=== PATIENT | female | born 1960 | race American Indian/Alaskan Native ===

== ENCOUNTER 2017-06-28 08:34 | Emergency (ER) | payer SELFPAY ==
[2017-06-28] MEDS ORDERED: BENADRYL IV ONE (11:15)
[2017-06-28] MEDS ORDERED: NACL 0.9% 500 ML 500 ML IV ONE (11:15)
[2017-06-28] MEDS ORDERED: PEPCID IV ONE (11:15)
[2017-06-28 11:33] LABS: Basophils % (Auto) 0.8 % (0.0-1.8); Eosinophils % (Auto) 1.9 % (0.0-4.3); Hematocrit 42.2 % (30.3-42.9); Hemoglobin 14.3 gm/dl (10.1-14.3); Mean Corpuscular HGB Conc 34 % (30-34); Mean Corpuscular Hemoglobin 31 pg (28-32); Mean Corpuscular Volume 91 fl (79-97); Platelet Count 208 K/mm3 (140-440); Red Blood Count 4.64 M/mm3 (3.65-5.03); Red Cell Distribution Width 14.1 % (13.2-15.2); White Blood Count 9.5 K/mm3 (4.5-11.0)
[2017-06-28 11:44] LABS: Anion Gap 17 mmol/L; BUN/Creatinine Ratio 15; Blood Urea Nitrogen 17 mg/dL (7-17); Calcium 9.5 mg/dL (8.4-10.2); Carbon Dioxide 25 mmol/L (22-30); Glucose 123 mg/dL (65-100); Sodium 140 mmol/L (137-145)
--- NOTE | 2017-06-28 12:01 | Emergency Department Report ---
ED General Adult HPI - General Chief complaint: Allergic Reaction Stated complaint: LIPS SWELLING/HIVES Time Seen by Provider: 06/28/17 10:46 Source: patient Mode of arrival: Ambulatory Limitations: No Limitations - History of Present Illness Initial comments: PT states she has a history of hives. She states she has been getting them intermittently for years. PT states she has been seen at other hospitals for this. PT states she takes a family dollar allergy medication every other day. PT states she has been checking her bp at home and it has been around 194/120 for "awhile". PT states she has not been dx with htn. PT states she does not take medication for htn. PT states last night she felt like her lips were swelling. PT states she was in the hospital visiting her [id number] and she also noticed the swelling. PT also reports a sore throat. MD Complaint: rash, lips swelling -: Gradual, days(s) Location: face, abdomen Quality: other (itchy ) Consistency: constant Improves with: none Worsens with: eating Associated Symptoms: rash. denies: cough, fever/chills, nausea/vomiting, shortness of breath Treatments Prior to Arrival: none, other (benadryl last night) - Related Data Previous Rx's Medication Instructions Recorded Last Taken Type Famotidine [Pepcid] 20 mg PO BID #14 tablet 06/28/17 Unknown Rx Hydrochlorothiazide [HCTZ] 25 mg PO QDAY #14 tablet 06/28/17 Unknown Rx hydrOXYzine PAMOATE [Vistaril] 25 mg PO Q6HR PRN #12 capsule 06/28/17 Unknown Rx Allergies Allergy/AdvReac Type Severity Reaction Status Date / Time No Known Allergies Allergy Unverified 06/28/17 09:00 ED Review of Systems ROS: Stated complaint: LIPS SWELLING/HIVES Other details as noted in HPI Comment: All other systems reviewed and negative Constitutional: denies: chills, fever ENT: throat pain Respiratory: denies: cough, shortness of breath Cardiovascular: denies: chest pain Gastrointestinal: denies: abdominal pain Musculoskeletal: denies: back pain Skin: rash ED Past Medical Hx - Past Medical History Previous Medical History?: No Additional medical history: uritcaria - Surgical History Past Surgical History?: No - Social History Smoking Status: Current Every Day Smoker Substance Use Type: Alcohol - Medications Home Medications: Home Medications Medication Instructions Recorded Confirmed Last Taken Type Famotidine [Pepcid] 20 mg PO BID #14 tablet 06/28/17 Unknown Rx Hydrochlorothiazide [HCTZ] 25 mg PO QDAY #14 tablet 06/28/17 Unknown Rx hydrOXYzine PAMOATE [Vistaril] 25 mg PO Q6HR PRN #12 capsule 06/28/17 Unknown Rx ED Physical Exam - General Limitations: No Limitations General appearance: alert, in no apparent distress - Head Head exam: Present: atraumatic, normocephalic, normal inspection - Eye Eye exam: Present: normal appearance, PERRL, EOMI. Absent: conjunctival injection - ENT ENT exam: Present: mucous membranes moist, TM's normal bilaterally, normal external ear exam - Expanded ENT Exam Expanded Mouth exam: Present: other (no angioedema noted. ). Absent: drooling, trismus, muffled voice Throat exam: Positive: other (uvula with erythema - no air way obstruction ). Negative: tonsillar erythema, tonsillomegaly, tonsillar exudate - Neck Neck exam: Present: normal inspection, full ROM, lymphadenopathy - Respiratory Respiratory exam: Present: normal lung sounds bilaterally. Absent: respiratory distress, wheezes, rales, chest wall tenderness - Cardiovascular Cardiovascular Exam: Present: regular rate, normal rhythm, normal heart sounds - GI/Abdominal GI/Abdominal exam: Present: soft. Absent: tenderness - Extremities Exam Extremities exam: Present: normal inspection, full ROM - Back Exam Back exam: Present: normal inspection, full ROM - Neurological Exam Neurological exam: Present: alert, oriented X3, normal gait - Psychiatric Psychiatric exam: Present: normal affect, normal mood - Skin Skin exam: Present: warm, dry, intact, rash, urticaria (to abd ) ED Course Vital Signs 06/28/17 06/28/17 06/28/17 09:00 14:51 16:20 Temperature 98.5 F Pulse Rate 63 64 70 Respiratory 18 18 Rate Blood Pressure 192/117 Blood Pressure 180/121 222/141 [Right] O2 Sat by Pulse 98 99 Oximetry 06/28/17 06/28/17 06/28/17 16:21 16:40 17:10 Temperature Pulse Rate 70 82 80 Respiratory 18 18 Rate Blood Pressure 222/141 Blood Pressure 216/127 203/118 [Right] O2 Sat by Pulse Oximetry BP decreasing. - Reevaluation(s) Reevaluation #1: 06/28/17 13:19 PT states she is feeling better. Urticaria resolved. PT aware she will need to follow up with PCP for bp recheck. PT aware of complications from untreated HTN Reevaluation #2: 06/28/17 17:23 No angioedema while in ED. Pt's bp increased from her baseline and was treated with one dose of Hydralazine. Her bp decreased to her baseline. PT aware she will need to follow up with PCP for bp management. PT aware that it is safest for bp to be decreased slowly. PT verbalizes understanding. - Pulse Oximetry Interpretation Digit-Finger Initial Pulse Oximetry Readin Actions Taken: none ED Medical Decision Making - Lab Data Result diagrams: 06/28/17 11:20 06/28/17 11:20 Laboratory Results - last 24 hr 06/28/17 06/28/17 11:20 11:20 WBC 9.5 RBC 4.64 Hgb 14.3 Hct 42.2 MCV 91 MCH 31 MCHC 34 RDW 14.1 Plt Count 208 Lymph % (Auto) 30.4 [place] % (Auto) 6.1 Eos % (Auto) 1.9 Baso % (Auto) 0.8 Lymph # 2.9 [place] # 0.6 Eos # 0.2 Baso # 0.1 Seg Neutrophils % 60.8 Seg Neutrophils # 5.8 Sodium 140 Potassium 4.0 Chloride 102.0 Carbon Dioxide 25 Anion Gap 17 BUN 17 Creatinine 1.1 Estimated GFR > 60 BUN/Creatinine Ratio 15 Glucose 123 H Calcium 9.5 - Differential Diagnosis allergic reaction, urticaria, htn, renal insufficency Critical Care Time: No Critical care attestation.: If time is entered above; I have spent that time in minutes in the direct care of this critically ill patient, excluding procedure time. ED Disposition Clinical Impression: Elevated blood pressure reading, Urticaria Disposition: - TO HOME OR SELFCARE Is pt being admited?: No Does the pt Need Aspirin: No Condition: Stable Instructions: Urticaria (ED), Hypertension (ED) Additional Instructions: Follow up with PCP in 3-5 days Have your bp rechecked on follow up No driving or alcohol after taking Vistaril Return to the ED if worsening or concerns Prescriptions: Famotidine [Pepcid] 20 mg PO BID #14 tablet Hydrochlorothiazide [HCTZ] 25 mg PO QDAY #14 tablet hydrOXYzine PAMOATE [Vistaril] 25 mg PO Q6HR PRN #12 capsule PRN Reason: Itching Referrals: PRIMARY CARE, [Primary Care Provider] - 3-5 Days QUINCY DANIEL MD [Staff Physician] - 3-5 Days [facility] [[facility] - 3-5 Days Time of Disposition: 13:21
[2017-06-28] MEDS ORDERED: HCTZ PO ONE (14:43)
[2017-06-28] MEDS ORDERED: APRESOLINE IV ONE (16:17)
[2017-06-28] MEDS ORDERED: APRESOLINE ONE (16:20)
[2017-06-28 18:01] VITALS: BP 203/118
== END 2017-06-28 18:01 | disposition home or self-care (01) ==
LOC: ED 08:34
DX: L50.9 Urticaria, unspecified (principal); R03.0 Elevated blood-pressure reading, without diagnosis of hypertension; F17.200 Nicotine dependence, unspecified, uncomplicated
CPT/HCPCS: 36415; 80048; 85025; 96361; 96374; 96375; 99283; J0360; J1200; J2930; J7040

== ENCOUNTER 2019-03-13 08:15 | Emergency (ER) | payer SELFPAY ==
[2019-03-13 08:24] VITALS: BP 139/87
[2019-03-13] MEDS ORDERED: IBUPROFEN PO ONE (09:02)
--- NOTE | 2019-03-13 09:05 | Emergency Department Report ---
- General Chief complaint: Back Pain/Injury Stated complaint: BACK PAIN Time Seen by Provider: 03/13/19 09:01 Source: patient Mode of arrival: Ambulatory Limitations: No Limitations - History of Present Illness Initial comments: 58-year-old -[place] female presents to the emergency room training of mid back pain states that something bit her a few nights ago. Patient reports that it is painful. Patient reports she has a past medical history of hypertension. Denies any fever chills no nausea no vomiting or shortness of breathing or chest pain. MD complaint: insect bite/sting Onset/Timin -: days(s) Location: back Severity: severe Severity scale (0 -10): 10 Quality: burning, stabbing Consistency: constant Improves with: none Worsens with: none Associated symptoms: denies other symptoms Treatments Prior to Arrival: none - Related Data Previous Rx's Medication Instructions Recorded Last Taken Type Famotidine [Pepcid] 20 mg PO BID #14 tablet 06/28/17 Unknown Rx hydrOXYzine PAMOATE [Vistaril] 25 mg PO Q6HR PRN #12 capsule 06/28/17 Unknown Rx hydroCHLOROthiazide [HCTZ] 25 mg PO QDAY #14 tablet 06/28/17 Unknown Rx Ibuprofen [Motrin 600 MG tab] 600 mg PO Q8H PRN #21 tablet 03/13/19 Unknown Rx cephALEXin [Keflex] 500 mg PO Q12HR #14 cap 03/13/19 Unknown Rx Allergies Allergy/AdvReac Type Severity Reaction Status Date / Time No Known Allergies Allergy Unverified 06/28/17 09:00 Abscess Boil HPI - HPI Chief Complaint: Back Pain/Injury Stated Complaint: BACK PAIN Time Seen by Provider: 03/13/19 09:01 Home Medications: Previous Rx's Medication Instructions Recorded Last Taken Type Famotidine [Pepcid] 20 mg PO BID #14 tablet 06/28/17 Unknown Rx hydrOXYzine PAMOATE [Vistaril] 25 mg PO Q6HR PRN #12 capsule 06/28/17 Unknown Rx hydroCHLOROthiazide [HCTZ] 25 mg PO QDAY #14 tablet 06/28/17 Unknown Rx Ibuprofen [Motrin 600 MG tab] 600 mg PO Q8H PRN #21 tablet 03/13/19 Unknown Rx cephALEXin [Keflex] 500 mg PO Q12HR #14 cap 03/13/19 Unknown Rx Allergies/Adverse Reactions: Allergies Allergy/AdvReac Type Severity Reaction Status Date / Time No Known Allergies Allergy Unverified 06/28/17 09:00 ED Review of Systems ROS: Stated complaint: BACK PAIN Other details as noted in HPI ED Past Medical Hx - Past Medical History Previous Medical History?: Yes Hx Hypertension: Yes Additional medical history: uritcaria - Surgical History Past Surgical History?: Yes Additional Surgical History: - Social History Smoking Status: Never Smoker Substance Use Type: None - Medications Home Medications: Home Medications Medication Instructions Recorded Confirmed Last Taken Type Famotidine [Pepcid] 20 mg PO BID #14 tablet 06/28/17 Unknown Rx hydrOXYzine PAMOATE [Vistaril] 25 mg PO Q6HR PRN #12 capsule 06/28/17 Unknown Rx hydroCHLOROthiazide [HCTZ] 25 mg PO QDAY #14 tablet 06/28/17 Unknown Rx Ibuprofen [Motrin 600 MG tab] 600 mg PO Q8H PRN #21 tablet 03/13/19 Unknown Rx cephALEXin [Keflex] 500 mg PO Q12HR #14 cap 03/13/19 Unknown Rx ED Physical Exam - General Limitations: No Limitations General appearance: alert, in no apparent distress - Head Head exam: Present: atraumatic, normocephalic - Eye Eye exam: Present: normal appearance - ENT ENT exam: Present: mucous membranes moist - Neck Neck exam: Present: normal inspection, full ROM - Respiratory Respiratory exam: Present: normal lung sounds bilaterally. Absent: respiratory distress - Cardiovascular Cardiovascular Exam: Present: regular rate, normal rhythm. Absent: systolic murmur, diastolic murmur, rubs, gallop - Extremities Exam Extremities exam: Present: normal inspection - Neurological Exam Neurological exam: Present: alert, oriented X3 - Psychiatric Psychiatric exam: Present: normal affect, normal mood - Expanded Skin Exam Expanded Type of lesion: Present: bite/sting Distribution of rash: back Description of rash: Present: tenderness, erythematous, indurated. Absent: fluctuant ED Course Vital Signs 03/13/19 08:21 Temperature 99 F Pulse Rate 94 H Respiratory 20 Rate Blood Pressure 139/87 [Left] O2 Sat by Pulse 98 Oximetry ED Medical Decision Making - Medical Decision Making 58-year-old -[place] female presents to the emergency room training of mid back pain states that something bit her a few nights ago. Patient reports that it is painful. Patient reports she has a past medical history of hypertension. Denies any fever chills no nausea no vomiting or shortness of breathing or chest pain. Patient will be given ibuprofen for pain management. I discussed the patient was treated for cellulitis place her on Keflex and pain medication patient is to follow-up with her primary care provider if her symptoms persist or gets worse. Patient verbalized understanding. Critical care attestation.: If time is entered above; I have spent that time in minutes in the direct care of this critically ill patient, excluding procedure time. ED Disposition Clinical Impression: Insect bite Cellulitis Qualifiers: Site of cellulitis: unspecified site Qualified Code(s): L03.90 - Cellulitis, unspecified Disposition: TO HOME OR SELFCARE Is pt being admited?: No Does the pt Need Aspirin: No Condition: Stable Instructions: Cellulitis (ED), Insect Bite or Sting (ED) Additional Instructions: Complete antibiotics as prescribed. Take pain medication as needed. Increase her water intake while taking antibiotics and ibuprofen. Follow up with her primary care provider if his symptoms persist or gets worse. Prescriptions: cephALEXin [Keflex] 500 mg PO Q12HR #14 cap Ibuprofen [Motrin 600 MG tab] 600 mg PO Q8H PRN #21 tablet PRN Reason: Pain , Severe (7-10) Referrals: Your,Provider [Other] - 3-5 Days Forms: Work/School Release Form(ED)
== END 2019-03-13 09:56 | disposition home or self-care (01) ==
LOC: ED 08:15
DX: S20.469A Insect bite (nonvenomous) of unspecified back wall of thorax, initial encounter (principal); L03.312 Cellulitis of back [any part except buttock and flank]; I10 Essential (primary) hypertension; W57.XXXA Bitten or stung by nonvenomous insect and other nonvenomous arthropods, initial encounter; Y93.89 Activity, other specified; Y92.89 Other specified places as the place of occurrence of the external cause; Y99.8 Other external cause status

== ENCOUNTER 2020-12-11 09:54 | Emergency (ER) | payer OTHER ==
[2020-12-11 10:16] VITALS: BP 177/113
--- NOTE | 2020-12-11 10:19 | Emergency Department Report ---
ED General Adult HPI - General Chief complaint: Back Pain/Injury Stated complaint: FALL, BACK AND LEFT SIDE OF BODY HURTS Time Seen by Provider: 12/11/20 10:15 Source: patient Mode of arrival: Ambulatory Limitations: No Limitations - History of Present Illness Initial comments: 60-year-old -[place]ong[place] female patient with history of hypertension pre sents with complaints of left shoulder and back pain after a fall injury 2 days ago. Patient states she tripped and fell over a box at work. She denies any head injury or loss of consciousness, numbness/tingling/weakness in her limbs, loss of bladder/bowel control, or difficulty with ambulation. Patient rates her pain as a 7/10 in severity and states it does improve with Tylenol temporarily. -: Sudden - Related Data Previous Rx's Medication Instructions Recorded Last Taken Type Famotidine [Pepcid] 20 mg PO BID #14 tablet 06/28/17 Unknown Rx hydrOXYzine PAMOATE [Vistaril] 25 mg PO Q6HR PRN #12 capsule 06/28/17 Unknown Rx hydroCHLOROthiazide [HCTZ] 25 mg PO QDAY #14 tablet 06/28/17 Unknown Rx Ibuprofen [Motrin 600 MG tab] 600 mg PO Q8H PRN #21 tablet 03/13/19 Unknown Rx cephALEXin [Keflex] 500 mg PO Q12HR #14 cap 03/13/19 Unknown Rx Naproxen 500 mg PO BID PRN #20 tablet 12/11/20 Unknown Rx methocarbamoL [Methocarbamol] 500 - 1,000 mg PO TID PRN #20 12/11/20 Unknown Rx tablet Allergies Allergy/AdvReac Type Severity Reaction Status Date / Time No Known Allergies Allergy Verified 12/11/20 10:16 ED Review of Systems ROS: Stated complaint: FALL, BACK AND LEFT SIDE OF BODY HURTS Other details as noted in HPI Constitutional: denies: malaise Respiratory: denies: cough, shortness of breath Cardiovascular: denies: chest pain Gastrointestinal: denies: abdominal pain, nausea, vomiting Musculoskeletal: back pain Neurological: denies: numbness, paresthesias ED Past Medical Hx - Past Medical History Hx Hypertension: Yes Additional medical history: uritcaria - Surgical History Additional Surgical History: - Social History Smoking Status: Current Every Day Smoker Substance Use Type: None - Medications Home Medications: Home Medications Medication Instructions Recorded Confirmed Last Taken Type Famotidine [Pepcid] 20 mg PO BID #14 tablet 06/28/17 Unknown Rx hydrOXYzine PAMOATE [Vistaril] 25 mg PO Q6HR PRN #12 capsule 06/28/17 Unknown Rx hydroCHLOROthiazide [HCTZ] 25 mg PO QDAY #14 tablet 06/28/17 Unknown Rx Ibuprofen [Motrin 600 MG tab] 600 mg PO Q8H PRN #21 tablet 03/13/19 Unknown Rx cephALEXin [Keflex] 500 mg PO Q12HR #14 cap 03/13/19 Unknown Rx Naproxen 500 mg PO BID PRN #20 tablet 12/11/20 Unknown Rx methocarbamoL [Methocarbamol] 500 - 1,000 mg PO TID PRN #20 12/11/20 Unknown Rx tablet ED Physical Exam - General Limitations: No Limitations General appearance: alert, in no apparent distress - Head Head exam: Present: atraumatic, normocephalic - Eye Eye exam: Present: normal appearance - Neck Neck exam: Present: normal inspection, full ROM - Respiratory Respiratory exam: Present: normal lung sounds bilaterally, chest wall tenderness (Lateral lower left rib tenderness to palpation noted without bruising or obvious deformity). Absent: respiratory distress - Cardiovascular Cardiovascular Exam: Present: regular rate, normal rhythm - Extremities Exam Extremities exam: Present: full ROM. Absent: other (Tenderness to palpation noted to left trapezius muscle without bony tenderness to the left shoulder noted; full range of motion of the left shoulder noted; normal sensation and perfusion of the left arm as noted) - Back Exam Back exam: Present: normal inspection - Neurological Exam Neurological exam: Present: alert, oriented X3 - Psychiatric Psychiatric exam: Present: normal affect, normal mood - Skin Skin exam: Present: warm, dry, intact, normal color. Absent: rash ED Course Vital Signs 12/11/20 10:14 Temperature 98.4 F Pulse Rate 78 Respiratory 20 Rate Blood Pressure 177/113 O2 Sat by Pulse 100 Oximetry ED Medical Decision Making - Radiology Data Radiology results: report reviewed THORACIC SPINE 3 VIEWS INDICATION: Back pain after fall. COMPARISON: No relevant prior imaging study available. FINDINGS: VERTEBRAE: No acute fracture. Normal alignment. DISC SPACES: No significant abnormality. FACET JOINTS: No significant abnormality. SOFT TISSUES: No significant abnormality. ADDITIONAL LEFT RIBS 3 VIEWS INDICATION: posteriolateral left rib pain after fall. COMPARISON: None available. FINDINGS: RIBS: No acute, displaced fracture or other acute abnormality. CHEST: No acute findings. No pneumothorax. ADDITIONAL FINDINGS: No additional significant findings. IMPRESSION: - Medical Decision Making 60-year-old -[place]ong[place] female patient with history of hypertension presents with complaints of left shoulder and back pain after a fall injury 2 days ago. Patient states she tripped and fell over a box at work. She denies any head injury or loss of consciousness, numbness/tingling/weakness in her limbs, loss of bladder/bowel control, or difficulty with ambulation. Patient rates her pain as a 7/10 in severity and states it does improve with Tylenol temporarily. No abnormalities noted on x-ray. Will treat for muscle strain with NSAIDs, muscle relaxers, and icing. Blood pressure elevated initially. Patient has history of hypertension states compliance with her antihypertensive medication. Blood pressure on repeat 168/101. Recommend follow-up with PCP in 3 to 5 days. Strict return precautions discussed in detail with patient who verbalized understanding. Critical care attestation.: If time is entered above; I have spent that time in minutes in the direct care of this critically ill patient, excluding procedure time. ED Disposition Clinical Impression: Back injury Disposition: DC-01 TO HOME OR SELFCARE Is pt being admited?: No Condition: Stable Instructions: Thoracic Strain Prescriptions: methocarbamoL [Methocarbamol] 500 - 1,000 mg PO TID PRN #20 tablet PRN Reason: Muscle spasm/tightness Naproxen 500 mg PO BID PRN #20 tablet PRN Reason: pain Referrals: PRIMARY CARE [Primary Care Provider] - 3-5 Days [facility] [Provider Group] - 3-5 Days Forms: Work/School Release Form(ED)
--- NOTE | 2020-12-11 10:54 | XRay Report ---
THORACIC SPINE 3 VIEWS INDICATION: Back pain after fall. COMPARISON: No relevant prior imaging study available. FINDINGS: VERTEBRAE: No acute fracture. Normal alignment. DISC SPACES: No significant abnormality. FACET JOINTS: No significant abnormality. SOFT TISSUES: No significant abnormality. ADDITIONAL FINDINGS: No additional significant findings. IMPRESSION: 1. No acute findings. Signer Name: Raymond Sanford MD Signed: 12/11/2020 10:49 AM Workstation Name: [id number]
--- NOTE | 2020-12-11 10:55 | XRay Report ---
LEFT RIBS 3 VIEWS INDICATION: posteriolateral left rib pain after fall. COMPARISON: None available. FINDINGS: RIBS: No acute, displaced fracture or other acute abnormality. CHEST: No acute findings. No pneumothorax. ADDITIONAL FINDINGS: No additional significant findings. IMPRESSION: 1. No acute abnormality. Signer Name: Raymond Sanford MD Signed: 12/11/2020 10:50 AM Workstation Name: [id number]
== END 2020-12-11 12:23 | disposition home or self-care (01) ==
LOC: ED 09:54
DX: S29.9XXA Unspecified injury of thorax, initial encounter (principal); M25.512 Pain in left shoulder; R09.81 Nasal congestion; I10 Essential (primary) hypertension; F17.200 Nicotine dependence, unspecified, uncomplicated; Z98.890 Other specified postprocedural states; Z79.899 Other long term (current) drug therapy; W01.0XXA Fall on same level from slipping, tripping and stumbling without subsequent striking against object, initial encounter; Y93.89 Activity, other specified; Y92.89 Other specified places as the place of occurrence of the external cause; Y99.8 Other external cause status
CPT/HCPCS: 72070; 99283

== ENCOUNTER 2022-01-13 12:39 | Emergency (ER) | payer SELFPAY ==
[2022-01-13] MEDS ORDERED: SODIUM CHLORIDE 0.9% 1000 ML IV SOLN IV ONE (14:26)
[2022-01-13] MEDS ORDERED: ACETAMINOPHEN 325 MG TAB PO ONE (14:27)
--- NOTE | 2022-01-13 14:52 | XRay Report ---
CHEST 1 VIEW 01/13/2022 1:45 PM INDICATION / CLINICAL INFORMATION: fever, htn. COMPARISON: 12/11/2020 FINDINGS: SUPPORT DEVICES: None. HEART / MEDIASTINUM: No significant abnormality. LUNGS / PLEURA: No significant pulmonary or pleural abnormality. No pneumothorax. ADDITIONAL FINDINGS: No significant additional findings. IMPRESSION: 1. No acute findings. No change since 12/11/2020. Signer Name: Kenneth Laureano Jr, MD Signed: 01/13/2022 2:47 PM Workstation Name: [id number]
[2022-01-13 14:53] LABS: Basophils # (Auto) 0.1 K/mm3 (0.0-0.1); Basophils % (Auto) 0.9 % (0.0-1.8); Eosinophils % (Auto) 0.2 % (0.0-4.3); Hematocrit 40.7 % (30.3-42.9); Hemoglobin 13.9 gm/dl (10.1-14.3); Lymphocytes # (Auto) 1.1 K/mm3 (1.2-5.4); Lymphocytes % (Auto) 9.2 % (13.4-35.0); Mean Corpuscular HGB Conc 34 % (30-34); Mean Corpuscular Volume 94 fl (79-97); Monocytes % (Auto) 8.4 % (0.0-7.3); Platelet Count 220 K/mm3 (140-440); Red Blood Count 4.35 M/mm3 (3.65-5.03); Red Cell Distribution Width 14.1 % (13.2-15.2)
[2022-01-13 15:10] LABS: Calcium 10.2 mg/dL (8.4-10.2)
--- NOTE | 2022-01-13 16:19 | Emergency Department Report ---
ED Fever HPI - General Chief Complaint: Fever Stated Complaint: HBP Time Seen by Provider: 01/13/22 14:28 Source: patient Exam Limitations: no limitations - History of Present Illness Initial Comments: 61-year-old patient with a past medical history of hypertension presents to the hospital complaining of fever and headache since 3 AM. Patient checked her blood pressure and it was elevated. She did not comply with her Norvasc x1 month. Patient denies cough, nausea, vomiting, dysuria, abdominal pain, diarrhea, chest pain, or shortness of breath. She is unvaccinated for COVID. ED Review of Systems ROS: Stated complaint: HBP Other details as noted in HPI Comment: All other systems reviewed and negative ED Past Medical Hx - Past Medical History Previous Medical History?: Yes Hx Hypertension: Yes Additional medical history: uritcaria - Surgical History Additional Surgical History: - Social History Smoking Status: Current Some Day Smoker Substance Use Type: Alcohol - Medications Home Medications: Home Medications Medication Instructions Recorded Confirmed Last Taken Type Famotidine [Pepcid] 20 mg PO BID #14 tablet 06/28/17 Unknown Rx hydrOXYzine PAMOATE [Vistaril] 25 mg PO Q6HR PRN #12 capsule 06/28/17 Unknown Rx hydroCHLOROthiazide [HCTZ] 25 mg PO QDAY #14 tablet 06/28/17 Unknown Rx Ibuprofen [Motrin 600 MG tab] 600 mg PO Q8H PRN #21 tablet 03/13/19 Unknown Rx cephALEXin [Keflex] 500 mg PO Q12HR #14 cap 03/13/19 Unknown Rx Naproxen 500 mg PO BID PRN #20 tablet 12/11/20 Unknown Rx methocarbamoL [Methocarbamol] 500 - 1,000 mg PO TID PRN #20 12/11/20 Unknown Rx tablet Amlodipine Besylate [Norvasc] 10 mg PO DAILY #60 tab 01/13/22 Unknown Rx Ibuprofen [Motrin] 800 mg PO Q8HR PRN #20 tablet 01/13/22 Unknown Rx Nitrofurantoin Dolores/M-Cryst 100 mg PO Q12HR #10 capsule 01/13/22 Unknown Rx [Macrobid CAP] ED Physical Exam - General Limitations: No Limitations - Other Other exam information: General: No acute distress Head: Atraumatic Eyes: normal appearance ENT: Moist mucous membranes Neck: Normal appearance, no midline tenderness, no nuchal rigidity Chest: Clear to auscultation bilaterally CV: Regular rate and rhythm Abdomen: Soft, normal bowel sounds, nontender, nondistended, no rebound or guarding Back: Normal inspection Extremity: Normal inspection, full range of motion, no calf tenderness or leg edema Neuro: Alert O x 3, no facial asymmetry, speech clear, no gross motor sensory deficit Psych: Appropriate behavior Skin: No rash ED Course Vital Signs 01/13/22 01/13/22 01/13/22 13:22 14:25 15:58 Temperature 103.0 F H 102.7 F H 99.9 F H Pulse Rate 114 H 100 H 88 Respiratory 16 16 18 Rate Blood Pressure 151/106 151/100 Blood Pressure 151/100 133/86 [Left] O2 Sat by Pulse 100 99 99 Oximetry 01/13/22 01/13/22 16:08 17:02 Temperature 98.2 F Pulse Rate 88 82 Respiratory 14 11 L Rate Blood Pressure Blood Pressure 133/86 137/89 [Left] O2 Sat by Pulse 100 98 Oximetry - Reevaluation(s) Reevaluation #1: 01/13/22 17:15 Headache improved after Tylenol. BP improved without intervention. Patient stable ED Medical Decision Making - Lab Data Result diagrams: 01/13/22 14:05 01/13/22 14:05 Lab Results 01/13/22 01/13/22 01/13/22 Range/Units 14:05 14:05 14:44 WBC 11.7 H (4.5-11.0) K/mm3 RBC 4.35 (3.65-5.03) M/mm3 Hgb 13.9 (10.1-14.3) gm/dl Hct 40.7 (30.3-42.9) % MCV 94 (79-97) fl MCH 32 (28-32) pg MCHC 34 (30-34) % RDW 14.1 (13.2-15.2) % Plt Count 220 (140-440) K/mm3 Lymph % (Auto) 9.2 L (13.4-35.0) % Dolores % (Auto) 8.4 H (0.0-7.3) % Eos % (Auto) 0.2 (0.0-4.3) % Baso % (Auto) 0.9 (0.0-1.8) % Lymph # (Auto) 1.1 L (1.2-5.4) K/mm3 Dolores # (Auto) 1.0 H (0.0-0.8) K/mm3 Eos # (Auto) 0.0 (0.0-0.4) K/mm3 Baso # (Auto) 0.1 (0.0-0.1) K/mm3 Seg Neutrophils % 81.3 H (40.0-70.0) % Seg Neutrophils # 9.5 H (1.8-7.7) K/mm3 Sodium 136 L (137-145) mmol/L Potassium 4.1 (3.6-5.0) mmol/L Chloride 100.0 (98-107) mmol/L Carbon Dioxide 25 (22-30) mmol/L Anion Gap 15 mmol/L BUN 12 (7-17) mg/dL Creatinine 1.2 (0.6-1.2) mg/dL Estimated GFR 56 ml/min BUN/Creatinine Ratio 10 % Glucose 126 H (65-100) mg/dL Lactic Acid 0.60 L (0.7-2.0) mmol/L Calcium 10.2 (8.4-10.2) mg/dL Total Bilirubin 0.70 (0.1-1.2) mg/dL AST 16 (5-40) units/L ALT 11 (7-56) units/L Alkaline Phosphatase 77 (35-129) units/L Total Protein 7.7 (6.3-8.2) g/dL Albumin 4.0 (3.9-5) g/dL Albumin/Globulin Ratio 1.1 % Urine Bilirubin (Negative) 01/13/22 Range/Units 16:08 WBC (4.5-11.0) K/mm3 RBC (3.65-5.03) M/mm3 Hgb (10.1-14.3) gm/dl Hct (30.3-42.9) % MCV (79-97) fl MCH (28-32) pg MCHC (30-34) % RDW (13.2-15.2) % Plt Count (140-440) K/mm3 Lymph % (Auto) (13.4-35.0) % Dolores % (Auto) (0.0-7.3) % Eos % (Auto) (0.0-4.3) % Baso % (Auto) (0.0-1.8) % Lymph # (Auto) (1.2-5.4) K/mm3 Dolores # (Auto) (0.0-0.8) K/mm3 Eos # (Auto) (0.0-0.4) K/mm3 Baso # (Auto) (0.0-0.1) K/mm3 Seg Neutrophils % (40.0-70.0) % Seg Neutrophils # (1.8-7.7) K/mm3 Sodium (137-145) mmol/L Potassium (3.6-5.0) mmol/L Chloride (98-107) mmol/L Carbon Dioxide (22-30) mmol/L Anion Gap mmol/L BUN (7-17) mg/dL Creatinine (0.6-1.2) mg/dL Estimated GFR ml/min BUN/Creatinine Ratio % Glucose (65-100) mg/dL Lactic Acid (0.7-2.0) mmol/L Calcium (8.4-10.2) mg/dL Total Bilirubin (0.1-1.2) mg/dL AST (5-40) units/L ALT (7-56) units/L Alkaline Phosphatase (35-129) units/L Total Protein (6.3-8.2) g/dL Albumin (3.9-5) g/dL Albumin/Globulin Ratio % Urine Bilirubin Neg (Negative) - Radiology Data Radiology results: report reviewed CHEST 1 VIEW 01/13/2022 1:45 PM INDICATION / CLINICAL INFORMATION: fever, htn. COMPARISON: 12/11/2020 FINDINGS: SUPPORT DEVICES: None. HEART / MEDIASTINUM: No significant abnormality. LUNGS / PLEURA: No significant pulmonary or pleural abnormality. No pneumothorax. ADDITIONAL FINDINGS: No significant additional findings. IMPRESSION: 1. No acute findings. No change since 12/11/2020. - Medical Decision Making 61-year female presents to the hospital with fever and headache. Although she denies urinary symptoms ED work-up reveals positive UTI. No signs of severe sepsis or septic shock. Patient treated with IV fluids, Tylenol, and initial dose of Macrobid. Patient be discharged on medications with follow-up recommended. Patient also requesting a refill in her Norvasc 10 mg which will be provided Critical Care Time: No Critical care attestation.: If time is entered above; I have spent that time in minutes in the direct care of this critically ill patient, excluding procedure time. ED Disposition Clinical Impression: Fever, UTI (urinary tract infection), Chronic hypertension, Noncompliance with medication regimen Disposition: 01 HOME / SELF CARE / HOMELESS Is pt being admited?: No Does the pt Need Aspirin: No Condition: Stable Instructions: Hypertension (ED), Urinary Tract Infection, Adult Additional Instructions: Take the medication as prescribed. Follow-up with your doctor or doctor/clinic provided. Return if symptoms worsen as indicated by your discharge instructions. Prescriptions: Nitrofurantoin Dolores/M-Cryst [Macrobid CAP] 100 mg PO Q12HR #10 capsule Ibuprofen [Motrin] 800 mg PO Q8HR PRN #20 tablet PRN Reason: Pain , Severe (7-10) Amlodipine Besylate [Norvasc] 10 mg PO DAILY #60 tab Referrals: [facility] [Provider Group] - 3-5 Days JUAN PABLO GAYLE MD [Staff Physician] - 3-5 Days Time of Disposition: 17:20
[2022-01-13 16:25] LABS: Bilirubin,Urine NEG (Negative); Blood,Urine LG (Negative); Color,Urine Yellow (Yellow); Urobilinogen,Urine < 2.0 mg/dL (<2.0)
[2022-01-13 16:30] LABS: Mucus,Urine FEW /HPF
[2022-01-13 16:33] LABS: Bacteria,Urine 2+ /HPF (Negative)
[2022-01-13 17:04] VITALS: BP 137/89
[2022-01-13] MEDS ORDERED: NITROFURANTOIN MONOHYD/M-CRYST 100 MG CAP PO ONE (17:08)
== END 2022-01-13 18:25 | disposition home or self-care (01) ==
LOC: ED 12:39
DX: R50.9 Fever, unspecified (principal); N39.0 Urinary tract infection, site not specified; Z91.14 Patient's other noncompliance with medication regimen; I10 Essential (primary) hypertension; R51.9 Headache, unspecified; F17.200 Nicotine dependence, unspecified, uncomplicated; F10.20 Alcohol dependence, uncomplicated
CPT/HCPCS: 36415; 71045; 80053; 81001; 82140; 85025; 87040; 87076; 87186; 99284